=== PATIENT | female | born 1950 | race Caucasian/White ===

== ENCOUNTER 2022-10-21 12:00 | Inpatient (IN) | payer MEDICARE, BC ==
[2022-10-21] MEDS ORDERED: Etomidate 2 MG/ML 20 ML SDV IVPUSH ONE (12:44)
[2022-10-21] MEDS ORDERED: Midazolam 1 MG/ML 2 ML SDV ONE (12:45)
[2022-10-21] MEDS ORDERED: fentaNYL 250 MCG/5 ML SDV ONE (12:45)
[2022-10-21] MEDS ORDERED: Lidocaine 1% 6 ML ONE (12:45)
[2022-10-21] MEDS ORDERED: Succinylcholine 200 MG/10 ML MDV ONE (12:54)
[2022-10-21] MEDS ORDERED: Sodium Chloride 0.9% 10 ML Syringe FLUSH PRN (12:56)
[2022-10-21] MEDS ORDERED: Sodium Chloride 0.9% 10 ML Syringe FLUSH SCH (13:00)
[2022-10-21] MEDS ORDERED: Lactated Ringers 1,000 ML IV SCH (13:00)
[2022-10-21] MEDS ORDERED: Vasopressin 20 UNIT/ML 10 ML MDV ONE (13:30)
[2022-10-21] MEDS ORDERED: Lactated Ringers 1,000 ML ONE (14:11)
[2022-10-21] MEDS ORDERED: Neostigmine Methylsulfate 10 MG/10 ML MDV ONE (14:25)
[2022-10-21] MEDS ORDERED: HYDROmorphone 0.5 MG/0.5 ML Syringe IVPUSH PRN ×2 (14:57→15:55)
[2022-10-21] MEDS ORDERED: fentaNYL 100 MCG/2 ML SDV IVPUSH PRN (14:57)
[2022-10-21] MEDS ORDERED: Ketorolac 15 MG/ML SDV ONE (15:06)
[2022-10-21] MEDS ORDERED: Lidocaine 1% 5 ML VIAL ONE (15:12)
[2022-10-21] MEDS ORDERED: oxyCODONE 5 MG Tab PO PRN (15:55)
[2022-10-21] MEDS ORDERED: Naloxone 0.4 MG/ML SDV IVPUSH PRN (15:57)
[2022-10-21] MEDS ORDERED: Albuterol/Ipratropium 3.0-0.5 MG/3 ML Neb Soln NEB PRN (15:57)
[2022-10-21] MEDS: Ibuprofen 400 MG Tab PO SCH ×2 (16:30→21:41)
[2022-10-21] MEDS: Ondansetron 4 MG Tab.DIS PO SCH ×2 (16:52→21:28)
[2022-10-21] MEDS: Acetaminophen 325 MG Tab PO SCH ×2 (18:20→21:29)
[2022-10-21] MEDS: Dextrose 5%-0.45% NaCl 1,000 ML IV SCH (21:28)
[2022-10-21] MEDS: Rosuvastatin 10 MG Tab PO SCH (21:29)
[2022-10-21] MEDS: Latanoprost 0.005% Ophth Soln 2.5 ML Bottle EYEBOTH SCH (21:29)
[2022-10-22] MEDS: Acetaminophen 325 MG Tab PO SCH ×6 (01:21→20:18)
[2022-10-22] MEDS: Ondansetron 4 MG Tab.DIS PO SCH ×4 (03:35→22:06)
[2022-10-22] MEDS: Ibuprofen 400 MG Tab PO SCH ×4 (03:35→22:06)
[2022-10-22] MEDS: Levothyroxine 88 MCG Tab PO SCH (05:48)
[2022-10-22] MEDS: Dextrose 5%-0.45% NaCl 1,000 ML IV SCH (05:49)
[2022-10-22] MEDS ORDERED: Benzocaine/Cetylpyridinium/Menthol Lozenge MUCMEM PRN (05:53)
[2022-10-22 06:00] LABS: ANION GAP 12.6 (5-15); CALCIUM 8.3 mg/dL (8.5-10.1); EST CRCL DRUG DOSING (CG) 41.4 mL/min; MAGNESIUM 1.5 mg/dL (1.8-2.4); PHOSPHORUS 3.6 mg/dL (2.6-4.7); POTASSIUM,K 3.6 mEq/L (3.5-5.1)
[2022-10-22 06:08] LABS: EOSINOPHILS PERCENT AUTO 0 (0.7-5.8); HEMATOCRIT 32.3 % (34.1-44.9); HEMOGLOBIN 10.5 gm/dl (11.2-15.7); IMMATURE GRAN ABSOLUTE AUTO 0.02 K/mm3 (0.00-0.10); IMMATURE GRAN PERCENT AUTO 0.1 % (<=1.0); LYMPHOCYTES ABSOLUTE AUTO 0.35 K/mm3 (1.18-3.74); LYMPHOCYTES PERCENT AUTO 1.9 % (19.3-51.7); MEAN CORPUSCULAR HEMOGLOBIN 26.6 pg (25.6-32.2); MEAN CORPUSCULAR HGB CONC 32.5 g/dl (32.2-35.5); MEAN PLATELET VOLUME 10.5 fl (9.4-12.3); MONOCYTES PERCENT AUTO 4.3 % (4.7-12.5); NEUTROPHILS ABSOLUTE AUTO 17.23 K/mm3 (1.56-6.13); NEUTROPHILS PERCENT AUTO 93.7 % (34.0-71.1); PLATELET COUNT,PLT 264 K/mm3 (182-369); RED BLOOD CELL COUNT 3.94 M/mm3 (3.98-5.22)
[2022-10-22 06:41] LABS: SLIDE REVIEW ABNORMAL SMEAR
[2022-10-22] MEDS ORDERED: Magnesium Sulfate/Water 2 GM in Premix Bag 1 BAG IV ONE (07:27)
[2022-10-22] MEDS ORDERED: Sodium Chloride 0.9% 1,000 ML IV ONE (07:27)
[2022-10-22] MEDS: Heparin Sodium 5,000 Units/ML Vial SUBCUT SCH ×2 (07:48→16:03)
[2022-10-22] MEDS: Hydrochlorothiazide 25 MG Tab PO SCH (09:16)
[2022-10-22] MEDS: amLODIPine 5 MG Tab PO SCH (09:16)
[2022-10-22] MEDS: Calcium Carbonate/Vitamin D3 600 MG-200 Units Tab PO SCH (09:18)
[2022-10-22] MEDS: Enalapril 5 MG Tab PO SCH (09:22)
[2022-10-22 12:42] LABS: ANION GAP 14.5 (5-15); CALCIUM 8.2 mg/dL (8.5-10.1); EST CRCL DRUG DOSING (CG) 41.4 mL/min; POTASSIUM,K 3.5 mEq/L (3.5-5.1)
[2022-10-22] MEDS: Sodium Chloride 1 GM Tab PO SCH ×2 (14:28→22:07)
[2022-10-22] MEDS: Latanoprost 0.005% Ophth Soln 2.5 ML Bottle EYEBOTH SCH (20:19)
[2022-10-22] MEDS: Rosuvastatin 10 MG Tab PO SCH (20:19)
[2022-10-23] MEDS: Heparin Sodium 5,000 Units/ML Vial SUBCUT SCH ×2 (00:10→07:46)
[2022-10-23] MEDS: Acetaminophen 325 MG Tab PO SCH ×4 (00:10→13:05)
[2022-10-23] MEDS: Ondansetron 4 MG Tab.DIS PO SCH ×2 (04:07→10:17)
[2022-10-23] MEDS: Ibuprofen 400 MG Tab PO SCH ×2 (04:07→10:15)
[2022-10-23 05:51] LABS: ANION GAP 12.5 (5-15); CALCIUM 8.2 mg/dL (8.5-10.1); EST CRCL DRUG DOSING (CG) 41.4 mL/min; MAGNESIUM 1.7 mg/dL (1.8-2.4); POTASSIUM,K 3.5 mEq/L (3.5-5.1)
[2022-10-23] MEDS: Levothyroxine 88 MCG Tab PO SCH (06:33)
[2022-10-23] MEDS: Sodium Chloride 1 GM Tab PO SCH ×2 (06:33→13:10)
[2022-10-23] MEDS ORDERED: Magnesium Sulfate (4.06 MEQ/ML) 5 GM/10 ML SDV IV ONE (09:15)
[2022-10-23] MEDS: amLODIPine 5 MG Tab PO SCH (09:50)
[2022-10-23] MEDS: Calcium Carbonate/Vitamin D3 600 MG-200 Units Tab PO SCH (09:55)
[2022-10-23] MEDS: Enalapril 5 MG Tab PO SCH (09:55)
[2022-10-23] MEDS: Hydrochlorothiazide 25 MG Tab PO SCH (09:55)
[2022-10-23] MEDS: Magnesium Sulfate/Water 2 GM in Premix Bag 1 BAG IV SCH ×2 (11:32→13:06)
== END 2022-10-23 16:10 | disposition home or self-care (01) | DRG 981 ==
LOC: JD.MS 12:04 → JD.ICU 12:04 → UNDOADMIN 12:04 → JD.ICU 12:34
PROVIDERS: ADMIT Surgery; ATTEND Surgery
PROC: 0D1N0Z4 Bypass Sigmoid Colon to Cutaneous, Open Approach (ICD-10-PCS; principal; 2022-10-21)
DX: K91.71 Accidental puncture and laceration of a digestive system organ or structure during a digestive system procedure (principal); K63.1 Perforation of intestine (nontraumatic); E87.1 Hypo-osmolality and hyponatremia; K66.0 Peritoneal adhesions (postprocedural) (postinfection); I10 Essential (primary) hypertension; G43.909 Migraine, unspecified, not intractable, without status migrainosus; E03.9 Hypothyroidism, unspecified; E78.49 Other hyperlipidemia; D50.9 Iron deficiency anemia, unspecified; E66.9 Obesity, unspecified; Z96.643 Presence of artificial hip joint, bilateral; Z90.710 Acquired absence of both cervix and uterus; Z98.890 Other specified postprocedural states; Z90.89 Acquired absence of other organs; Z79.899 Other long term (current) drug therapy; Z88.0 Allergy status to penicillin; Z88.5 Allergy status to narcotic agent; Z88.2 Allergy status to sulfonamides; Z68.38 Body mass index [BMI] 38.0-38.9, adult; Y65.8 Other specified misadventures during surgical and medical care
CPT/HCPCS: 00840; 36415; 80048; 82947; 83735; 84100; 85025; 99140; A9270-GY; J0330; J1644; J1885; J2250; J2710; J3010; J3475; J3490; J7030; J7042; J7120